=== PATIENT | male | born 1990 | race Hispanic/Latino ===

== ENCOUNTER 2018-03-26 23:26 | Emergency (ER) | payer SELFPAY ==
--- NOTE | 2018-03-26 23:42 | ER ---
Nurse's Notes [facility] Name: Chad Pabon Age: 28 yrs Sex: Male : 1990 Arrival Date: 03/26/2018 Time: 23:33 Bed 5 Private MD: Diagnosis: Presentation: 03/26 23:40 Note registration reported pt decided to leave after learning his insurance in not bb accepted here before triage. ED Course: 23:33 Patient arrived in ED. es 23:37 Javan Blackwell MD is Attending Physician. pkl Administered Medications: No medications were administered Outcome: 23:41 Patient left the ED. bb Signatures: Javan lBackwell MD MD pkBridgette Heaton Brenda RN RN bb
== END 2018-03-26 23:41 | disposition left against medical advice (07) ==
LOC: ER 23:26
DX: Z53.21 Procedure and treatment not carried out due to patient leaving prior to being seen by health care provider (principal)